=== PATIENT | male | born 1960 | race Caucasian/White ===

== ENCOUNTER 2019-02-27 16:44 | Emergency (ER) | payer OTHER, SELFPAY ==
[2019-02-27 16:45] VITALS: BP 172/85; PULSE 114; RESP 18; TEMP 37.1; O2SAT 97; BMI 43.9
--- NOTE | 2019-02-27 17:20 | CT_ITS ---
HISTORY: Throat swelling and pain 2 days COMPARISON: None. TECHNIQUE: Helical CT axial images are obtained from the base of skull through the thoracic inlet with 100 ml of Isovue 300 intravenous contrast. Multiplanar reconstruction. A radiation dose optimization technique was used for this scan. # of images incl. paperwork: 343 FINDINGS: AERODIGESTIVE: There is a 0.9 x 0.9 cm round mildly hypodense lesion along the inferior aspect of the lingual tonsil best seen on sagittal slice 59 and series 2 image 61. Further characterization is limited. Otherwise, remainder of the Waldeyer's ring has a normal appearance without significant adenoidal hypertrophy or evidence for peritonsillar abscess. Remainder of the aerodigestive tract has a normal appearance including the laryngeal structures. The tongue base and retromolar trigones have a normal appearance. The airway is patent without mass effect upon it. No abnormal enhancement is seen. LYMPH NODES: No abnormal cervical lymphadenopathy. NECK GLANDS: Bilateral parotid and submandibular glands have a normal appearance. The thyroid gland is normal in size without significant nodules. SOFT TISSUES: The neck and facial soft tissues show no cellulitic changes or abnormal fluid collections. SKULL BASE: Severe opacification of left mastoid air cells and left middle ear cavity. Right mastoid air cells and right middle ear cavities are clear. Paranasal sinuses are essentially clear. VASCULAR: Carotid vasculature shows no significant atherosclerotic changes. Vertebral arteries are unremarkable. Normal origin of the great vessels. LUNG APICES: Visualized lung apices demonstrates no masses or suspicious nodules. BONES: No destructive lytic or blastic osseous lesions. No significant cervical spine degenerative changes. CT/Soft Tissue Neck WITH Contrast IMPRESSION: 1. Inferior lingual tonsil 0.9 x 0.9 cm mildly hypodense lesion bulging into the inferior aspect of the oropharynx without significant airway narrowing. Mucosal based lesion/neoplasm versus an infectious/inflammatory process cannot be differentiated. Correlation with direct visualization is recommended and if warranted histologic sampling. 2. No other neck masses or abnormal cervical lymphadenopathy. 3. Severe left otomastoiditis. Individualized dose optimization techniques were used for this CT. at 1846 Reported and signed by: Miguelangel Nieto MD Electronically Signed: Miguelangel Nieto MD at 18:45 EDT Tel , Service support ,
[2019-02-27 17:36] LABS: Absolute Neutrophil Count 5.3 X10^3/uL (2.0-7.7); Basophil# 0.01 X10^3/uL; Basophil% 0.1 % (0-1); Eosinophil# 0.06 X10^3/uL; Eosinophils% 0.8 % (0-5); Hemoglobin 14.7 g/dl (13.0-16.5); Mean Corp Hgb Conc 34.2 g/gl (32-36); Mean Corpuscular Hgb 29.5 pg (27.0-32.0); Mean Corpuscular Volume 86.3 fL (80-94); Mean Platelet Vol. 9.1 fl (6.2-12.0); Neutrophil % 70.7 % (47-70); POSITIVE COUNT NO; POSITIVE DIFFERENTIAL NO; POSITIVE MORPHOLOGY NO; Platelet Count 226 K/mm3 (150-450); RBC Distribution Width CV 13.3 % (11.6-14.6); RBC Distribution Width SD 42.2 fl (35.1-43.9); Red Blood Count 4.98 M/mm3 (4.6-6.2); White Blood Count 7.5 K/mm3 (4.4-11.0)
[2019-02-27] MEDS: DiphenhydrAMINE 50 MG/ML Syringe 25 MG IV (17:37)
[2019-02-27] MEDS: MethylPREDNISolone 125 MG/2 ML Vial IV (17:37)
[2019-02-27 17:48] LABS: Anion Gap 6 (5-15); BUN 17 mg/dL (7-18); BUN/Creat Ratio 16.3 RATIO (10-20); Calcium,Total 8.6 mg/dL (8.5-10.1); Chloride 104 mmol/L (98-107); Creatinine, Serum 1.04 mg/dL (0.70-1.30); EST Glomerular Filtration Rate 78 mL/min (>60); Est Glom Filt Rate - Afr Amer 95 mL/min (>60); Estimated Creatinine Clearance 78.37 ml/min; Glucose 132 mg/dL (74-106); Potassium 3.4 mmol/L (3.5-5.1); Sodium Level 138 mmol/L (136-145)
[2019-02-27 18:44] VITALS: BP 153/107; PULSE 106; RESP 18; O2SAT 97
--- NOTE | 2019-02-27 19:44 | ED.VISSUMM ---
- ER Visit Summary Date of Service: 02/27/19 Chief Complaint: Rash History of Present Illness: The patient is a 58 M with a rash and possible anaphylaxis. He was sent from urgent care. Patient has had a rash for days. It recurred today. He also had some throat swelling. He was treated with epinephrine at urgent care and referred to the ED. He works outside but denies any new or different exposures. No other chemicals or meds. He does not take lisinopril or other blood pressure medication. He never had this before. Physical Examination: Vitals unremarkable. Patient has diffuse erythematous rash. Mucous membranes and eyes do not show lesions. His oropharynx is slightly edematous including his uvula. Uvula is midline. Airway intact. Normal voice. Neck unremarkable. Lungs clear bilaterally. Abdomen soft and nontender. Heart tachycardic but regular. No other pertinent findings. Test Results: Labs unremarkable. CT showed a inferior lingual tonsillar lesion with an intact airway. Direct visualization recommended. Emergency Department Course and Treatment: Patient was placed on a monitor. Patient has signs and symptoms of allergic reaction, possibly anaphylaxis. He was already treated with epinephrine. He did have some oral pharyngeal edema and so neck imaging was performed. He does have an inferior lingual swelling, possible lesion. Airway was intact. Direct visualization was advised. I spoke with Dr. Cobian who will follow-up with the patient. On reevaluation, the patient is feeling better. Airway unremarkable. Rash is improved. Vitals stable. Patient will be treated with Benadryl, Pepcid, prednisone. He was prescribed an EpiPen and instructed on use. He was given a referral to ENT for follow-up. Patient was advised that rebound symptoms can occur. Return for any new or worsening issues. Disposition: Discharged Impression: 1. Anaphylaxis 2. Lingual tonsillar lesion This note was generated with [employer] dictation software. It may contain incorrect words, spelling, and punctuation that were not noted in review of the chart prior to signing ED Disposition - Plan for ED Patient: Disposition: Home or Assisted Living Instructions: ALLERGIC REACTION, Other (General) Prescriptions: DiphenhydrAMINE [Benadryl] 25 mg PO TID 5 Days #15 cap Prescription Printed Epi Pen (for allergic rxn) 0.3 mg IM X1 #2 syringe Prescription Printed Famotidine [Pepcid] 20 mg PO BID #10 tab Prescription Printed Prednisone 10 mg PO UD #33 tab Prescription Printed Referrals: Kuldeep Cobian MD [STAFF PHYSICIAN] - As soon as possible Saturnino Ricardo DO [Primary Care Provider] -
--- NOTE | 2019-02-27 19:46 | ED.DEP ---
ED Disposition - Plan for ED Patient: Instructions: ALLERGIC REACTION, Other (General) Prescriptions: DiphenhydrAMINE [Benadryl] 25 mg PO TID 5 Days #15 cap Prescription Printed Epi Pen (for allergic rxn) 0.3 mg IM X1 #2 syringe Prescription Printed Famotidine [Pepcid] 20 mg PO BID #10 tab Prescription Printed Prednisone 10 mg PO UD #33 tab Prescription Printed Referrals: Saturnino Ricardo DO [Primary Care Provider] - Kuldeep Cobian MD [STAFF PHYSICIAN] - As soon as possible
[2019-02-27 20:00] VITALS: BP 146/98; PULSE 92; RESP 18
== END 2019-02-27 20:01 | disposition home or self-care (01) ==
PROVIDERS: Emergency Provider Emergency Medicine; Family Provider Student in an Organized Health Care Education/Training Program; PCP Student in an Organized Health Care Education/Training Program
DX: T78.2XXA Anaphylactic shock, unspecified, initial encounter (principal); J35.9 Chronic disease of tonsils and adenoids, unspecified; E78.00 Pure hypercholesterolemia, unspecified; Z87.891 Personal history of nicotine dependence
CPT/HCPCS: 70491; 80048; 85025; 96374; 96375; 99285; J7030; Q9967; A4216; J3490

== ENCOUNTER → 2019-03-04 15:28 | Outpatient (CLI) | payer OTHER, SELFPAY ==
[2019-02-27 16:45] VITALS: BMI 43.9
[2019-03-05 11:13] LABS: Hepatitis C Antibody Non-Reactive (Nonreactive)
[2019-03-08 08:07] LABS: Almond <0.10 kU/L (Class 0); Apple <0.10 kU/L (Class 0); Banana 0.11 kU/L (Class 0/I); Barley, Whole Grain <0.10 kU/L (Class 0); Beef <0.10 kU/L (Class 0); Brazil Nut <0.10 kU/L (Class 0); Carrot <0.10 kU/L (Class 0); Cashew <0.10 kU/L (Class 0); Chicken <0.10 kU/L (Class 0); Clam <0.10 kU/L (Class 0); Codfish <0.10 kU/L (Class 0); Crab <0.10 kU/L (Class 0); Egg, Whole <0.10 kU/L (Class 0); Garlic <0.10 kU/L (Class 0); Gluten <0.10 kU/L (Class 0); Hazelnut/Filbert <0.10 kU/L (Class 0); Lobster <0.10 kU/L (Class 0); Milk (Cow) 0.18 kU/L (Class 0/I); Oat <0.10 kU/L (Class 0); Onion <0.10 kU/L (Class 0); Orange <0.10 kU/L (Class 0); Pea <0.10 kU/L (Class 0); Peach <0.10 kU/L (Class 0); Pecan <0.10 kU/L (Class 0); Pork <0.10 kU/L (Class 0); Potato, White <0.10 kU/L (Class 0); Rice <0.10 kU/L (Class 0); SESAME SEED <0.10 kU/L (Class 0); Salmon <0.10 kU/L (Class 0); Shrimp <0.10 kU/L (Class 0); Soybean <0.10 kU/L (Class 0); Strawberry <0.10 kU/L (Class 0); Tomato <0.10 kU/L (Class 0); Tuna <0.10 kU/L (Class 0); Walnut, (Food) <0.10 kU/L (Class 0); Wheat <0.10 kU/L (Class 0); Yeast <0.10 kU/L (Class 0)
[2019-03-08 13:49] LABS: Peanut <0.10 kU/L (Class 0); Turkey <0.10 kU/L (Class 0)
[2019-03-11 04:08] LABS: Immunoglobulin E 32 IU/mL (6-495); PROEL- A/G Ratio 1.1 (0.7-1.7); PROEL- Albumin 3.6 g/dL (2.9-4.4); PROEL- Alpha-1 Globulin 0.3 g/dL (0.0-0.4); PROEL- Alpha-2 Globulin 0.9 g/dL (0.4-1.0); PROEL- Beta Globulin 1.3 g/dL (0.7-1.3); PROEL- Gamma Globulin 0.9 g/dL (0.4-1.8); PROEL- Globulin, Total 3.4 g/dL (2.2-3.9)
[2019-03-11 11:04] LABS: C1 EST Inhibitor, Functional 67 (.)
== END ==
PROVIDERS: Family Provider Student in an Organized Health Care Education/Training Program; PCP Student in an Organized Health Care Education/Training Program; Referring Provider Otolaryngology Otolaryngology/Facial Plastic Surgery; Visit Provider Otolaryngology Otolaryngology/Facial Plastic Surgery
DX: T78.3XXA Angioneurotic edema, initial encounter (principal); T78.40XA Allergy, unspecified, initial encounter
CPT/HCPCS: 36415; 82785; 83520; 84165; 86003; 86160; 86161; 86803

== ENCOUNTER 2019-05-04 11:46 | Day surgery (SDC) | payer OTHER, SELFPAY ==
[2019-05-04 12:19] VITALS: BP 133/74; PULSE 88; RESP 14; TEMP 36.9; O2SAT 96; BMI 41.1
[2019-05-04] MEDS: Lactated Ringers 1,000 ML 100 ML IV ×2 (12:26→15:00)
--- NOTE | 2019-05-04 13:30 | IMM_PTH ---
PATIENT: ARTURO RICE LOC: EN U#:[id number] AGE/SX: 58/M ROOM: RE05/04/[address]: Dr. Felicity Jiménez MD : 1960 BED: DIS: 05/04/2019 SPEC #: [id number] RECD: 05/05/19 10:10 STATUS: JOSE REYamil #: [id number] BAHMAN: 05/04/19 13:[address]: Felicity Jiménez DEPT: IMMUNOHISTOCHEMISTRY RECD BY: Maddie Ragland ENTERED: 05/05/19 10:12 SP TYPE: IMMUNO OTHR DR: Dr. Saturnino Ricardo DO Tissues: B - Stomach, NOS Procedures: H Pylori (initial) PHYSICIAN & INSTITUTION [place] [id number] SPECIMEN INFORMATION: Tissue Source: B - Antrum biopsy Clinical Info: Probable GERD, colon screening Specimen Number: [id number] CPT code: 42394 METHODOLOGY: Deparaffinized sections of prefer/formalin-fixed tissue or PAP/DQ stained slides are incubated with monoclonal/polyclonal antibodies/oligonucleotide probes. Localization is made via biotin free immunoperoxidase method. Appropriate controls are performed and reacted as expected. Results on target cell population are indicated in the following table: RESULTS: ANTIBODY / CLONE RESULT Block B H Pylori (polyclonal) negative These tests were developed and their performance characteristics determined by [facility]. They may not have been cleared or approved by the U.S. Food and Drug Administration. The FDA has determined that such clearance or approval is not necessary. INTERPRETATION: B. Antrum biopsy: Negative for Helicobacter pylori organisms. SJ:scot 05/06/19
--- NOTE | 2019-05-04 13:33 | EGD_PTH ---
PATIENT: ARTURO RICE LOC: EN U#:[id number] AGE/SX: 58/M ROOM: RE05/04/[address]: Dr. Felicity Jiménez MD : 1960 BED: DIS: 05/04/2019 SPEC #: [id number] RECD: 05/04/19 15:38 STATUS: JOSE GUILLERMINA #: [id number] BAHMAN: 05/04/19 13:[address]: Felicity Jiménez DEPT: SURGICAL PATHOLOGY RECD BY: Jer Michael ENTERED: 05/05/19 09:24 SP TYPE: EGD BIOPSY OT DR: Dr. Saturnino Ricardo DO Tissues: A - Duodenum, NOS B - Gastric mucous membrane C - Esophagus, NOS D - Rectum, NOS Procedures: Surgery Specimen Level IV HEADER OPERATION: Colonoscopy, EGD ([facility] [place] PRE-OP DIAGNOSIS: Probable GERD, colon screening TISSUE SUBMITTED: A. Second portion of duodenum biopsy, B. Antrum biopsy for H. pylori and path, C. Mid esophagus biopsy, D. Biopsy of rectum polyp MICROSCOPIC DIAGNOSIS A. Second portion of duodenum, biopsy: Fragments of duodenal mucosa, no pathologic diagnosis. B. Antrum, biopsy: Mild gastritis. See microscopic description and comment. C. Mid esophagus, biopsy: Fragments of squamous epithelium with minimal congestion and chronic inflammation. D. Rectum polyp, biopsy: Fragments of hyperplastic polyp. SJ:scot 05/06/19 COMMENT B. The results of immunohistochemistry for Helicobacter pylori will be reported separately ([id number]). MICROSCOPIC DESCRIPTION Slides are reviewed. B. The specimen shows fragments of gastric mucosa with chronic inflammatory cell infiltrates in the lamina propria consisting of lymphocytes and plasma cells, consistent with mild chronic gastritis. GROSS DESCRIPTION A - Received in fixative is one container labeled with the patient's name and designated second portion of duodenum biopsy. The specimen consists of one irregular fragment of light child soft tissue that measures 0.3 x 0.3 x 0.1 cm. The specimen is totally submitted in one cassette. B - Received in fixative is one container labeled with the patient's name and designated antrum biopsy. The specimen consists of two irregular fragments of light child soft tissue that in aggregate measure 0.3 x 0.1 x 0.1 cm and 0.1 cm in greatest dimension. The specimen is totally submitted in one cassette. C - Received in fixative is one container labeled with the patient's name and designated mid esophagus biopsy. The specimen consists of two irregular fragments of light child soft tissue that in aggregate measure 0.2 x 0.2 x 0.1 cm. The specimen is totally submitted in one cassette. D - Received in fixative is one container labeled with the patient's name and designated biopsy of rectum polyp. The specimen consists of multiple irregular fragments of light child soft tissue that in aggregate measure 0.4 x 0.3 x 0.1 cm. The specimen is totally submitted in one cassette. / SJ:rg 05/05/19 TC:1 CPT: 52562 x4
--- NOTE | 2019-05-04 14:44 | HP.PCM_ITS ---
History and Physical Date of Admission: 05/04/19 Mason Navarrete 1960 ? ? REFERRING PHYSICIAN: Milagros Ford (Senior Consultant), * ? CHIEF COMPLAINT: Consult ? HPI: The patient is a pleasant 58 year old male presents with acid reflux/heartburn and screening for colon cancer with colonoscopy. He sometimes notes regurgitation of solid food. Denies hematemesis, denies blood in stools. Has pharyngeal dysphagia with water Denies any problems with dysphagia with solid foods. Has nocturnal cough Has water brash Was on PPI for about 10 years, but then had to switch to another type due to insurance and the medication does not seem to be working as well. He has rectus diastasis and wonder if this is the same has a hiatal hernia and causing acid indigestion Father had esophageal cancer and soon after diagnosis at the age of 66 ? ? PAST MEDICAL HISTORY Diagnosis Date ? Acute appendicitis without mention of peritonitis ? ? Acute gastritis without mention of hemorrhage ? ? Anaphylactic reaction ? ? Diabetes mellitus type 2, controlled (HCC) ? ? Esophageal reflux ? ? Esophagitis, unspecified ? ? History of pulmonary embolus (PE) 2007 ? Lichen planus ? ? Obesity, unspecified ? ? LOUIS (obstructive sleep apnea) ? ? non compliant with CPAP, states unable to tolerate ? Other and unspecified hyperlipidemia ? ? PMH - PAST MEDICAL HISTORY OF ? ? family history of esophageal cancer (Father) ? ? PAST SURGICAL HISTORY Procedure Laterality Date ? CHG INJ TENDON SHEATH/LIGAMENT Right ? ? TORN LIGAMENT ANKLE ? COLONOS W/REM POLYP SNARE ? 07/16/08 ? Mid-descending polyp ? EGD W/O BRSH SPECIMEN W/BX ? 05/22/07 ? KNEE SCOPE,MENISECTOMY,MED OR LAT Left 05/09/2018 ? Left knee arthroscopic medial menisectomy, PF chondroplasty ? LAPAROSCOPY, SURGICAL, APPENDECTOMY ? 05/12/08 ? ruptured appendix ? PAST SURGICAL HISTORY OF ? ? ? umbilica hernia surgery ? REPAIR INCIS HERNIA W MESH ? 10-14-08 ? incisional hernia ? ? Current Outpatient Medications: atorvastatin (LIPITOR) 40 mg tablet Take 1 tablet by mouth daily at bedtime. For cholesterol. Omeprazole 40 mg capsule Take 1 capsule by mouth once daily. Zolpidem (AMBIEN CR) 12.5 mg CR tablet Take 1 tablet by mouth at bedtime as needed for Sedation for up to 90 days. famotidine (PEPCID) 20 mg tablet Take 1 tablet by mouth daily at bedtime. EPINEPHrine (EPIPEN) 0.3 mg/0.3 mL auto-injector Use as directed peg 3350-Electrolytes (GOLYTELY) 236-22.74-6.74 -5.86 gram suspension Take 4,000 mL by mouth one time only for 1 dose. Refer to printed prep instructions from your doctor. ? ? ALLERGIES: Banana; Latex, Natural Rubber; Milk; [place] [Hydrocodone- Acetaminophen] ? PERSONAL HISTORY: Social History Socioeconomic History Marital status: Spouse name: Maday Number of children: 3 Years of education: Not on file Highest education level: Not on file Occupational History Not on file Social Needs Financial resource strain: Not on file Food insecurity: Worry: Not on file Inability: Not on file Transportation needs: Medical: Not on file Non-medical: Not on file Tobacco Use Smoking status: Former Smoker Packs/day: 1.50 Years: 20.00 Pack years: 30 Types: Cigarettes Smokeless tobacco: Current User Types: Chew Tobacco comment: quit 1999 Substance and Sexual Activity Alcohol use: Yes Comment: occasional on weekends Drug use: No Sexual activity: Not on file Comment: not asked Lifestyle Physical activity: Days per week: Not on file Minutes per session: Not on file Stress: Not on file Relationships Social connections: Talks on phone: Not on file Gets together: Not on file Attends christianity service: Not on file Active member of club or organization: Not on file Attends meetings of clubs or organizations: Not on file Relationship status: Not on file Intimate partner violence: Fear of current or ex partner: Not on file Emotionally abused: Not on file Physically abused: Not on file Forced sexual activity: Not on file Other Topics Concerns: Not on file Social History Narrative Not on file ? FAMILY HISTORY Problem Relation Age of Onset ? other (dementia) Mother ? ? other (esophageal cancer) Father ? ? ? REVIEW OF SYSTEMS: General: The patient denies fatigue, denies weight loss, denies weight gain, denies feeling hot, and denies feelings of cold. Eyes: The patient denies glaucoma, denies eye injury/surgery, does not wear glasses or contacts. Ear/Nose/Throat: The patient NOTES allergies, denies hayfever, NOTES ear infections, and denies bloody noses. Cardiovascular: The patient denies chest pain, denies heart disease, denies high blood pressure,denies cardiac stent, denies prior heart attack, denies irregular heart beat, NOTES high cholesterol, denies poor circulation, denies heart failure, other cardiac issues, denies claudication, denies cold feet, denies peripheral arterial stent. Respiratory: The patient denies tuberculosis, NOTES pneumonia, denies frequent cough, NOTES pulmonary embolism, denies shortness of breath, and denies coughing up blood. Gastrointestinal: The patient denies difficulty swallowing, NOTES acid reflux, denies ulcers, denies vomiting, denies jaundice/hepatitis, denies gallbladder problems, denies black or tarry stools, denies hemorrhoids, denies bleeding from rectum, denies diverticulitis, denies constipation, denies diarrhea, denies loss of stool control, and NOTES hernias. Kidney/Bladder: The patient denies kidney stones, denies urine infections, and denies bloody urine. Skin: The patient denies a history of skin cancer, denies bleeding/ changing moles, and denies a history of skin rash. Neurologic: The patient denies a history of epilepsy/convulsions, denies headaches, denies head/spinal injuries, and denies stroke/TIA. Psychiatric: The patient denies psychiatric medications, denies depression, and denies voices, denies substance abuse. Endocrine: The patient denies thyroid disorders, denies diabetes, and denies hormonal problems. Hematologic: The patient denies a history of bruising, denies bleeding, and denies anemia, denies blood clots. Infections: The patient NOTES a history of measles and mumps, denies rheumatic fever, and denies sexually transmitted diseases. Musculoskeletal: The patient denies back pain/injury, NOTES back problems, denies sciatica, denies knee/foot trouble, denies arthritis, or denies gout. ? PHYSICAL EXAMINATION: General: The patient is 58 year old male, well nourished, well hydrated in no acute distress. The patient is oriented to time, place, and person. VITALS: Blood pressure 150/84, pulse 104, temperature 36.8 ?C (98.2 ?F), temperature source Temporal Artery, height 176.5 cm (5' 9.5), weight 134.7 kg (297 lb), SpO2 95 %. Body mass index is 43.23 kg/m?. Head ? Normocephalic. EOM intact with sclera clear and no icterus noted. Mouth with mucus membranes moist. Neck - supple with no jugular venous distention noted. Trachea is midline. Lungs ? clear to auscultation. Normal breath sounds. No rales/rhonchi/wheezing noted. No labored breathing noted, such as retractions. No cough heard. Heart ? normal S1 and S2 auscultated. No rubs/clicks/murmurs noted. Regular rate. Abdomen ? soft and benign. Normal bowel sound. Difficult to determine if any masses or organomegaly due to body habitus. Extremities ? no calf tenderness noted. No pitting edema noted. Skin ? normal skin integrity. Neurological ? gait normal, no focal deficits noted Psych ? calm and appropriate ? ? Assessment IMPRESSION: probable GERD, screening for colon cancer ? PLAN: I have discussed the above with the patient. I have explained that he has rectus diastasis (because he felt that this was his hernia) and that it is not actually a hernia and demonstrated with pictures. Also that there is no surgical repair that will fix this given patient's body habitus. I have also explained to him what a hiatal hernia is and that it is not a hernia that is obvious externally and also demonstrated with pictures. I have offered EGD and colonoscopy, possible biopsies for evaluation. I have explained the procedure to the patient. I have counseled the patient as to the risks of the procedure, including but not limited to: infection, bleeding, perforation of the GI tract, injury to any intraabdominal organs such as the liver/spleen, inability to complete the procedure, complications of anesthesia, etc. ? the patient understands. The patient wishes to proceed. ? I have answered all questions to the patient?s satisfaction and the patient has no further questions. ? . Diagnoses: (K21.9) Gastroesophageal reflux disease, esophagitis presence not specified (primary encounter diagnosis) (Z12.11) Screening for colon cancer (E66.01) Morbid obesity (HCC) Return to Clinic: The patient is instructed to follow-up with me ?
[2019-05-04 15:26] VITALS: BP 133/74; BP 99/75; PULSE 93; RESP 16; TEMP 36.6; O2SAT 93
--- NOTE | 2019-05-04 15:26 | OP.ENDO_ITS ---
05/04/2019 Saturnino Ricardo [address] [place] [address] Re : Upper GI endoscopy procedure for Mason Navarrete Dear Dr. Ricardo This procedure was performed on Saturday, May 04, 2019. My impressions and recommendations are as follows: Impressions : - Normal first portion of the duodenum and second portion of the duodenum. Biopsied. - Normal esophagus. Biopsied. - Erythematous mucosa in the antrum. Biopsied. Recommendations : - Discharge patient to home (ambulatory). - Resume previous diet. - Continue present medications. - Await pathology results. - My office will telephone with pathology results in 1-2 weeks My findings are described in the full procedure note, which is enclosed. If I can be of further assistance, please feel free to contact me at Doctor phone number(s): , Work: . Sincerely, MD Felicity Bolye MD 05/04/2019 3:26:16 PM This report has been signed electronically.
--- NOTE | 2019-05-04 15:28 | OP.ENDO_ITS ---
05/04/2019 Saturnino Ricardo [address] [place] [phone] Re : Colonoscopy procedure for Mason Navarrete Dear Dr. Ricardo This procedure was performed on Saturday, May 04, 2019. My impressions and recommendations are as follows: Impressions : - Diverticulosis in the sigmoid colon. - One 3 to 8 mm polyp in the rectum, removed with a cold biopsy forceps. Resected and retrieved. - Non-bleeding internal hemorrhoids. lipoma noted in right colon Recommendations : - Repeat colonoscopy date to be determined after pending pathology results are reviewed for surveillance based on pathology results. - My office will telephone with pathology results in 1-2 weeks - Continue present medications. My findings are described in the full procedure note, which is enclosed. If I can be of further assistance, please feel free to contact me at Doctor phone number(s): , Work: . Sincerely, MD Felicity oByle MD 05/04/2019 3:28:38 PM This report has been signed electronically.
[2019-05-04 15:31] VITALS: BP 107/79; BP 133/74; PULSE 97; RESP 16; O2SAT 94
[2019-05-04 15:35] VITALS: BP 119/80; BP 133/74; PULSE 89; RESP 16; O2SAT 95
[2019-05-04 15:40] VITALS: BP 122/79; BP 133/74; PULSE 80; RESP 16; TEMP 36.5; O2SAT 95
[2019-05-04 15:52] VITALS: BP 133/74
== END 2019-05-04 15:57 | disposition home or self-care (01) ==
LOC: EN 11:47 → AC 11:49
PROVIDERS: Family Provider Student in an Organized Health Care Education/Training Program; PCP Student in an Organized Health Care Education/Training Program; Referring Provider Student in an Organized Health Care Education/Training Program; Visit Provider Surgery
PROC: 0DJD8ZZ Inspection of Lower Intestinal Tract, Via Natural or Artificial Opening Endoscopic (ICD-10-PCS; CPT 45378; principal; 2019-05-04 13:25)
DX: Z12.11 Encounter for screening for malignant neoplasm of colon (principal); K21.9 Gastro-esophageal reflux disease without esophagitis; K29.70 Gastritis, unspecified, without bleeding; R05 Cough; Z80.0 Family history of malignant neoplasm of digestive organs; E11.9 Type 2 diabetes mellitus without complications; G47.33 Obstructive sleep apnea (adult) (pediatric); E78.5 Hyperlipidemia, unspecified; Z91.19 Patient's noncompliance with other medical treatment and regimen; Z87.891 Personal history of nicotine dependence; E66.01 Morbid (severe) obesity due to excess calories; K57.30 Diverticulosis of large intestine without perforation or abscess without bleeding; K62.1 Rectal polyp; K64.8 Other hemorrhoids; Z88.5 Allergy status to narcotic agent; Z91.040 Latex allergy status; Z86.711 Personal history of pulmonary embolism; Z68.41 Body mass index [BMI] 40.0-44.9, adult
CPT/HCPCS: 43239; 45380; 88305; 88342; J7120